=== PATIENT | male | born 1960 | race Caucasian/White ===

== ENCOUNTER 2018-08-05 09:04 | Inpatient (IN) | payer OTHER ==
[2018-08-05 09:34] VITALS: BMI 19.5
--- NOTE | 2018-08-05 10:08 | HP ---
CIWA Score Nausea/Vomitin Muscle Tremors: 2 Anxiety: 2 Agitation: 2 Paroxysmal Sweats: 1-Minimal Palms Moist Orientation: 0-Oriented Tacttile Disturbances: 1-Very Mild Itch/Numbness Auditory Disturbances: 1-Very Mild Visual Disturbances: 0-None Headache: 2-Mild CIWA-Ar Total Score: 13 - Admission Criteria OASAS Guidelines: Admission for Medically Managed Detox: Requires at least one of the followin. CIWA greater than 12 2. Seizures within the past 24 hours 3. Delirium tremens within the past 24 hours 4. Hallucinations within the past 24 hours 5. Acute intervention needed for co occurring medical disorder 6. Acute intervention needed for co occurring psychiatric disorder 7. Severe withdrawal that cannot be handled at a lower level of care (continued vomiting, continued diarrhea, abnormal vital signs) requiring intravenous medication and/or fluids 8. Admission ROS [facility] - HPI Chief Complaint: i need help to stop drinking alcohol Allergies/Adverse Reactions: Allergies Allergy/AdvReac Type Severity Reaction Status Date / Time No Known Allergies Allergy Verified 08/05/18 09:50 History of Present Illness: this 58 years old male with alcohol dependence,seeking detox,withdrawal symptom, seen in [place] last night receiving librium multiple admissions in detox,last 05/30 [facility] but keep relapsing seizure last 05/30 surgery left craniotomy post trauma in 2005 in [facility] nicotine 6 cigarette/day,requested patch longest sobriety 3 months weight loss plan for out patient after detox Exam Limitations: No Limitations - Ebola screening Have you traveled outside of the country in the last 21 days: No Have you had contact with anyone from an Ebola affected area: No Have you been sick,other than usual withdrawal symptoms: No Do you have a fever: No - Review of Systems Constitutional: Loss of Appetite, Malaise, Night Sweats, Changes in sleep, Unintentional Wgt. Loss EENT: reports: Tearing, Nose Congestion, Other (s/p left cranitomy post trauam in 2005) Respiratory: reports: No Symptoms reported Cardiac: reports: No Symptoms Reported GI: reports: Nausea, Poor Appetite, Vomiting : reports: No Symptoms Reported Musculoskeletal: reports: Back Pain, Muscle Pain Integumentary: reports: Dryness Neuro: reports: Headache, Tremors Endocrine: reports: No Symptoms Reported Hematology: reports: No Symptoms Reported Psychiatric: reports: No Sypmtoms Reported, Judgement Intact, Mood/Affect Appropiate, Orientated x3 Other Systems: Reviewed and Negative Patient History - Patient Medical History Hx Anemia: No Hx Asthma: No Hx Chronic Obstructive Pulmonary Disease (COPD): No Hx Cancer: No Hx Cardiac Disorders: No Hx Congestive Heart Failure: No Hx Hypertension: No Hx Hypercholesterolemia: No Hx Pacemaker: No HX Cerebrovascular Accident: No Hx Seizures: Yes (2 mths ago & on keppra) Hx Dementia: No Hx Diabetes: No Hx Gastrointestinal Disorders: No Hx Liver Disease: No Hx Genitourinary Disorders: No Hx Sexually Transmitted Disorders: No Hx Renal Disease (ESRD): No Hx Thyroid Disease: No Hx Human Immunodeficiency Virus (HIV): No (last 05/30 negative) Hx Hepatitis C: No Hx Depression: No Hx Suicide Attempt: No Hx Bipolar Disorder: No Hx Schizophrenia: No Other Medical History: no suicidal,no homicidal,left cranotomy post trauam in 2005 at [facility] - Patient Surgical History Past Surgical History: Yes Other Surgical History: brain surgery 2006 left cranitomy post trauma - PPD History Previous Implant?: Yes Documented Results: Negative w/o proof Implanted On Prior [facility] Admission?: No PPD to be Administered?: Yes - Smoking Cessation Smoking history: Current every day smoker Have you smoked in the past 12 months: Yes Aproximately how many cigarettes per day: 6 Hx Chewing Tobacco Use: No Initiated information on smoking cessation: Yes 'Breaking Loose' booklet given: 08/05/18 - Substance & Tx. History Hx Alcohol Use: Yes Hx Substance Use: No Substance Use Type: Alcohol Hx Substance Use Treatment: Yes (05/30 [facility]) - Substances Abused Alcohol Route: Oral Frequency: Daily Amount used: 2 pt. vodka Age of first use: 15 Date of Last Use: 08/05/18 Cocaine Route: Smoking Frequency: 1-3 times last 30 days Amount used: 5 $ Age of first use: 58 Date of Last Use: 08/01/18 Family Disease History - Family Disease History Family History: Denies Admission Physical Exam S - Vital Signs Vital Signs: Vital Signs - 24 hr 08/05/18 09:28 Temperature 99.1 F Pulse Rate 86 Respiratory 18 Rate Blood Pressure 149/93 - Physical General Appearance: Yes: Moderate Distress, Tremorous, Irritable, Anxious HEENTM: Yes: Normal ENT Inspection, NEW, Pharynx Normal, Other (s/p cranioty left post head trauma) Respiratory: Yes: Lungs Clear, Normal Breath Sounds, No Respiratory Distress Neck: Yes: Within Normal Limits, Supple, Trachea in good position Breast: Yes: Within Normal Limits Cardiology: Yes: Within Normal Limits, Regular Rhythm, Regular Rate, S1, S2 Abdominal: Yes: Within Normal Limits, Normal Bowel Sounds, Flat, Soft Genitourinary: Yes: Within Normal Limits Back: Yes: Muscle Spasm Musculoskeletal: Yes: Back pain, Muscle Pain Extremities: Yes: Within Normal Limits, Normal Range of Motion, Tremors Neurological: Yes: board of directors II-XII NML intact, Fully Oriented, Alert, Motor Strength 5/5, Other (s/p left cranioty left) Integumentary: Yes: Dry Lymphatic: Yes: Within Normal Limits - Diagnostic (1) Alcohol dependence with uncomplicated withdrawal Current Visit: Yes Status: Acute (2) Seizure Current Visit: Yes Status: Acute (3) Dehydration Current Visit: Yes Status: Acute (4) History of craniotomy Current Visit: Yes Status: Acute (5) Weight loss Current Visit: Yes Status: Acute Cleared for Admission [facility] - Detox or Rehab [facility] Level of Care: Medically Managed Detox Regimen/Protocol: Librium [facility] Breath Alcohol Content Breath Alcohol Content: 0.037 Urine Drug Screen - Results Drug Screen Negative: No Urine Drug Screen Results: [facility] Inpatient Rehab Admission - Rehab Decision to Admit Inpatient rehab admission?: No
[2018-08-05] MEDS ORDERED: MAGNESIUM CITRATE 300 ML BOTTLE PO PRN (10:28)
[2018-08-05] MEDS ORDERED: ACETAMINOPHEN 325 MG TABLET (FP) PO PRN ×2 (10:28)
[2018-08-05] MEDS ORDERED: MAGNESIUM HYDROX 2400MG/30ML ORAL SUSPENSION 30 ML CUP PO PRN (10:28)
[2018-08-05] MEDS ORDERED: chlordiazePOXIDE HCL 25 MG CAPSULE PO PRN (10:28)
[2018-08-05] MEDS ORDERED: MELATONIN 5 MG TABLETS PO PRN (10:28)
[2018-08-05] MEDS ORDERED: hydrOXYzine PAMOATE 25 MG CAPSULE (FP) PO PRN (10:28)
[2018-08-05] MEDS ORDERED: MAG HYDROX/AL HYDROX/SIMETH 30 ML UNIT-DOSE CUP PO PRN (10:28)
[2018-08-05] MEDS ORDERED: BISMUTH SUBSALICYLATE 262 MG/15 ML BTL PO PRN (10:28)
[2018-08-05] MEDS ORDERED: METHOCARBAMOL 500 MG TABLET PO PRN (10:28)
[2018-08-05] MEDS ORDERED: IBUPROFEN 400 MG TABLET (FP) PO PRN ×2 (10:28)
[2018-08-05] MEDS ORDERED: MENTHOL/PHENOL 1 EACH UD MM PRN (10:28)
--- NOTE | 2018-08-05 11:31 | EKG ---
Test Reason : Blood Pressure : / mmHG Vent. Rate : 085 BPM Atrial Rate : 085 BPM P-R Int : 126 ms QRS Dur : 082 ms QT Int : 376 ms P-R-T Axes : 067 062 059 degrees QTc Int : 447 ms NORMAL SINUS RHYTHM SEPTAL INFARCT , AGE UNDETERMINED ABNORMAL ECG NO PREVIOUS ECGS AVAILABLE Confirmed by PEARL FRAUSTO MD ([id number]) on 08/05/2018 11:31:29 AM Referred By: Confirmed By:PEARL FRAUSTO MD
[2018-08-05] MEDS: NICOTINE 21 MG/24 HOURS TOPICAL PATCH TD SCH (11:51)
[2018-08-05] MEDS: chlordiazePOXIDE HCL 25 MG CAPSULE PO SCH ×2 (19:24→22:54)
[2018-08-05 20:09] LABS: EPI CELLS 0.6 /HPF (0-5); URINE APPEARANCE CLEAR; URINE BACTERIA 1.2 /hpf (NEGATIVE); URINE BILIRUBIN NEGATIVE (NEGATIVE); URINE CASTS 1 /hpf (0-8); URINE COLOR YELLOW; URINE GLUCOSE (UA) NEGATIVE (NEGATIVE); URINE KETONE TRACE (NEGATIVE); URINE LEUK ESTERASE NEGATIVE (NEGATIVE); URINE NITRITE NEGATIVE (NEGATIVE); URINE PROTEIN NEGATIVE (NEGATIVE); URINE RBC 3 /hpf (0-4); URINE UROBILINOGEN 0.2 mg/dL (0.2-1.0); URINE WBC 1 /hpf (0-5)
[2018-08-05] MEDS: THIAMINE HCL 100 MG TABLET (FP) PO SCH (22:54)
[2018-08-05] MEDS: levETIRAcetam 500 MG TABLET (FP) PO SCH (22:54)
[2018-08-06] MEDS: chlordiazePOXIDE HCL 25 MG CAPSULE PO SCH ×4 (06:07→23:39)
[2018-08-06] MEDS: levETIRAcetam 500 MG TABLET (FP) PO SCH ×2 (10:23→23:39)
[2018-08-06] MEDS: PHENYTOIN NA EXTENDED 100 MG CAPSULE (FP) PO SCH (10:23)
[2018-08-06] MEDS: PRENATAL VITAMINS W/ FOLIC ACID TABLET (FP) PO SCH (10:23)
[2018-08-06] MEDS: NICOTINE 21 MG/24 HOURS TOPICAL PATCH TD SCH (10:24)
[2018-08-06 10:54] LABS: HEMATOCRIT 38.5 % (35.4-49); HEMOGLOBIN 12.8 GM/dL (11.7-16.9); MCH 34.7 pg (25.7-33.7); MCHC 33.2 g/dl (32.0-35.9); MEAN CELL VOLUME 104.4 fl (80-96); MEAN PLT VOLUME 8.7 fl (7.5-11.1); PLATELET COUNT 239 K/MM3 (134-434); RBC 3.69 M/mm3 (4.00-5.60); RDW 13.9 % (11.9-15.9); WHITE BLOOD COUNT 10.3 K/mm3 (4.0-10.0)
[2018-08-06 11:35] LABS: ALBUMIN 3.8 g/dl (3.4-5.0); ALK PHOS 111 U/L (45-117); ANION GAP 8 MMOL/L (8-16); BILIRUBIN,TOTAL 0.6 mg/dL (0.2-1); BLOOD UREA NITROGEN 5 mg/dL (7-18); CALCIUM 8.9 mg/dL (8.5-10.1); CHLORIDE 104 mmol/L (98-107); CO2 30 mmol/L (21-32); CREATININE 0.8 mg/dL (0.55-1.3); GLUCOSE,RANDOM 117 mg/dL (74-106); POTASSIUM 3.4 mmol/L (3.5-5.1); SGOT/AST 51 U/L (15-37); SGPT/ALT 27 U/L (13-61); SODIUM 142 mmol/L (136-145); TOT PROT 6.8 g/dl (6.4-8.2)
[2018-08-06] MEDS: THIAMINE HCL 100 MG TABLET (FP) PO SCH (23:39)
[2018-08-07] MEDS: chlordiazePOXIDE HCL 25 MG CAPSULE PO SCH ×2 (05:47→10:44)
[2018-08-07] MEDS: levETIRAcetam 500 MG TABLET (FP) PO SCH ×2 (10:44→23:01)
[2018-08-07] MEDS: PHENYTOIN NA EXTENDED 100 MG CAPSULE (FP) PO SCH (10:44)
[2018-08-07] MEDS: NICOTINE 21 MG/24 HOURS TOPICAL PATCH TD SCH (10:44)
[2018-08-07] MEDS: PRENATAL VITAMINS W/ FOLIC ACID TABLET (FP) PO SCH (10:44)
--- NOTE | 2018-08-07 11:06 | PN ---
S CIWA - CIWA Score Nausea/Vomitin-No Nausea/No Vomiting Muscle Tremors: 3 Anxiety: 3 Agitation: 3 Paroxysmal Sweats: 3 Orientation: 0-Oriented Tacttile Disturbances: 0-None Auditory Disturbances: 0-None Visual Disturbances: 0-None Headache: 0-None Present CIWA-Ar Total Score: 12 [facility] Progress Note (SOAP) Subjective: sweats interrupted sleep anxiety Objective: 08/07/18 11:04 Vital Signs Temperature 98.1 F 08/07/18 10:02 Pulse Rate 71 08/07/18 10:02 Respiratory Rate 16 08/07/18 10:02 Blood Pressure 142/78 08/07/18 10:02 O2 Sat by Pulse Oximetry (%) Laboratory Tests 08/05/18 08/05/18 08/05/18 11:15 11:15 12:15 WBC RBC Hgb Hct MCV MCH MCHC RDW Plt Count MPV Sodium Potassium Chloride Carbon Dioxide Anion Gap BUN Creatinine Creat Clearance w eGFR Random Glucose Calcium Total Bilirubin AST ALT Alkaline Phosphatase Total Protein Albumin Urine Color Yellow Urine Appearance Clear Urine pH 6.0 Ur Specific [place] 1.033 Urine Protein Negative Urine Glucose (UA) Negative Urine Ketones Trace H Urine Blood Trace Urine Nitrite Negative Urine Bilirubin Negative Urine Urobilinogen 0.2 Ur Leukocyte Esterase Negative Urine WBC (Auto) 1 Urine RBC (Auto) 3 Urine Casts (Auto) 1 U Epithel Cells (Auto) 0.6 Urine Bacteria (Auto) 1.2 Phenytoin 5.6 L RPR Titer HIV 1&2 Antibody Screen Negative HIV P24 Antigen Negative 08/06/18 08/06/18 08/06/18 06:00 06:00 08:00 WBC 10.3 H RBC 3.69 L Hgb 12.8 Hct 38.5 MCV 104.4 H MCH 34.7 H MCHC 33.2 RDW 13.9 Plt Count 239 MPV 8.7 Sodium 142 Potassium 3.4 L Chloride 104 Carbon Dioxide 30 Anion Gap 8 BUN 5 L Creatinine 0.8 Creat Clearance w eGFR 100.00 Random Glucose 117 H Calcium 8.9 Total Bilirubin 0.6 AST 51 H ALT 27 Alkaline Phosphatase 111 Total Protein 6.8 Albumin 3.8 Urine Color Urine Appearance Urine pH Ur Specific [place] Urine Protein Urine Glucose (UA) Urine Ketones Urine Blood Urine Nitrite Urine Bilirubin Urine Urobilinogen Ur Leukocyte Esterase Urine WBC (Auto) Urine RBC (Auto) Urine Casts (Auto) U Epithel Cells (Auto) Urine Bacteria (Auto) Phenytoin RPR Titer Nonreactive HIV 1&2 Antibody Screen HIV P24 Antigen labs noted hypokalemia 3.4; kdur 20meq x 2 days ordered labs repeated orderd aaox3 ambulating no acute distress Assessment: 08/07/18 11:05 withdrawal sx Plan: continue detox increase fluids kdur ordered labs repeated
[2018-08-07] MEDS: POTASSIUM CHLORIDE TABS 20 MEQ TABLET.ER (FP) PO SCH (12:31)
[2018-08-07] MEDS ORDERED: chlordiazePOXIDE HCL 10 MG CAPSULE PO PRN (17:00)
[2018-08-07] MEDS: chlordiazePOXIDE HCL 10 MG CAPSULE PO SCH ×2 (17:35→23:02)
[2018-08-07] MEDS: THIAMINE HCL 100 MG TABLET (FP) PO SCH (23:02)
[2018-08-08] MEDS: chlordiazePOXIDE HCL 10 MG CAPSULE PO SCH ×3 (06:18→17:38)
[2018-08-08] MEDS: POTASSIUM CHLORIDE TABS 20 MEQ TABLET.ER (FP) PO SCH (10:14)
[2018-08-08] MEDS: PRENATAL VITAMINS W/ FOLIC ACID TABLET (FP) PO SCH (10:14)
[2018-08-08] MEDS: PHENYTOIN NA EXTENDED 100 MG CAPSULE (FP) PO SCH (10:14)
[2018-08-08] MEDS: levETIRAcetam 500 MG TABLET (FP) PO SCH ×2 (10:14→22:32)
[2018-08-08] MEDS: NICOTINE 21 MG/24 HOURS TOPICAL PATCH TD SCH (10:14)
[2018-08-08 11:00] LABS: BASO % 0.4 % (0-2.0); EOS % 5.6 % (0-4.5); HEMATOCRIT 36.1 % (35.4-49); LYMPH % 35.4 % (8-40); MCHC 33.1 g/dl (32.0-35.9); MEAN CELL VOLUME 102.7 fl (80-96); MEAN PLT VOLUME 8.9 fl (7.5-11.1); MONO % 13.2 % (3.8-10.2); NEUT % 45.4 % (42.8-82.8); PLATELET COUNT 194 K/MM3 (134-434); RBC 3.52 M/mm3 (4.00-5.60); RDW 13.2 % (11.9-15.9); WHITE BLOOD COUNT 5.4 K/mm3 (4.0-10.0)
[2018-08-08 11:03] LABS: ALBUMIN 2.8 g/dl (3.4-5.0); ALK PHOS 107 U/L (45-117); ANION GAP 7 MMOL/L (8-16); BILIRUBIN,TOTAL 0.2 mg/dL (0.2-1); BLOOD UREA NITROGEN 10 mg/dL (7-18); CALCIUM 8.2 mg/dL (8.5-10.1); CHLORIDE 104 mmol/L (98-107); CO2 27 mmol/L (21-32); CREATININE 0.6 mg/dL (0.55-1.3); GLUCOSE,RANDOM 98 mg/dL (74-106); POTASSIUM 3.6 mmol/L (3.5-5.1); SGOT/AST 16 U/L (15-37); SGPT/ALT 15 U/L (13-61); SODIUM 138 mmol/L (136-145); TOT PROT 5.6 g/dl (6.4-8.2)
--- NOTE | 2018-08-08 13:43 | PN ---
S CIWA - CIWA Score Nausea/Vomitin Muscle Tremors: 2 Anxiety: 2 Agitation: 2 Paroxysmal Sweats: 2 Orientation: 0-Oriented Tacttile Disturbances: 2-Mild Itch/Numbness/Burn Auditory Disturbances: 0-None Visual Disturbances: 0-None Headache: 1-Very Mild CIWA-Ar Total Score: 13 S Progress Note (SOAP) Subjective: Interrupted sleep, shakes, sweats and malaise Objective: 08/08/18 13:42 Vital Signs 08/08/18 08/08/18 08:29 09:43 Temperature 97.5 F L 97.7 F Pulse Rate 61 86 Respiratory 18 16 Rate Blood Pressure 136/79 131/70 Laboratory Last Values WBC 5.4 K/mm3 (4.0-10.0) 08/08/18 07:45 RBC 3.52 M/mm3 (4.00-5.60) L 08/08/18 07:45 Hgb 12.0 GM/dL (11.7-16.9) 08/08/18 07:45 Hct 36.1 % (35.4-49) 08/08/18 07:45 MCV 102.7 fl (80-96) H 08/08/18 07:45 MCH 34.0 pg (25.7-33.7) H 08/08/18 07:45 MCHC 33.1 g/dl (32.0-35.9) 08/08/18 07:45 RDW 13.2 % (11.9-15.9) 08/08/18 07:45 Plt Count 194 K/MM3 (134-434) 08/08/18 07:45 MPV 8.9 fl (7.5-11.1) 08/08/18 07:45 Absolute Neuts (auto) 2.5 K/mm3 (1.5-8.0) 08/08/18 07:45 Neutrophils % 45.4 % (42.8-82.8) 08/08/18 07:45 Lymphocytes % 35.4 % (8-40) 08/08/18 07:45 Monocytes % 13.2 % (3.8-10.2) H 08/08/18 07:45 Eosinophils % 5.6 % (0-4.5) H 08/08/18 07:45 Basophils % 0.4 % (0-2.0) 08/08/18 07:45 Nucleated RBC % 0 % (0-0) 08/08/18 07:45 Sodium 138 mmol/L (136-145) 08/08/18 07:45 Potassium 3.6 mmol/L (3.5-5.1) 08/08/18 07:45 Chloride 104 mmol/L (98-107) 08/08/18 07:45 Carbon Dioxide 27 mmol/L (21-32) 08/08/18 07:45 Anion Gap 7 MMOL/L (8-16) L 08/08/18 07:45 BUN 10 mg/dL (7-18) 08/08/18 07:45 Creatinine 0.6 mg/dL (0.55-1.3) 08/08/18 07:45 Creat Clearance w eGFR 139.37 (>60) 08/08/18 07:45 Random Glucose 98 mg/dL (74-106) 08/08/18 07:45 Calcium 8.2 mg/dL (8.5-10.1) L 08/08/18 07:45 Total Bilirubin 0.2 mg/dL (0.2-1) 08/08/18 07:45 AST 16 U/L (15-37) 08/08/18 07:45 ALT 15 U/L (13-61) 08/08/18 07:45 Alkaline Phosphatase 107 U/L (45-117) 08/08/18 07:45 Total Protein 5.6 g/dl (6.4-8.2) L 08/08/18 07:45 Albumin 2.8 g/dl (3.4-5.0) L 08/08/18 07:45 Urine Color Yellow 08/05/18 12:15 Urine Appearance Clear 08/05/18 12:15 Urine pH 6.0 (5.0-8.0) 08/05/18 12:15 Ur Specific [place] 1.033 (1.010-1.035) 08/05/18 12:15 Urine Protein Negative (NEGATIVE) 08/05/18 12:15 Urine Glucose (UA) Negative (NEGATIVE) 08/05/18 12:15 Urine Ketones Trace (NEGATIVE) H 08/05/18 12:15 Urine Blood Trace (NEGATIVE) 08/05/18 12:15 Urine Nitrite Negative (NEGATIVE) 08/05/18 12:15 Urine Bilirubin Negative (NEGATIVE) 08/05/18 12:15 Urine Urobilinogen 0.2 mg/dL (0.2-1.0) 08/05/18 12:15 Ur Leukocyte Esterase Negative (NEGATIVE) 08/05/18 12:15 Urine WBC (Auto) 1 /hpf (0-5) 08/05/18 12:15 Urine RBC (Auto) 3 /hpf (0-4) 08/05/18 12:15 Urine Casts (Auto) 1 /hpf (0-8) 08/05/18 12:15 U Epithel Cells (Auto) 0.6 /HPF (0-5) 08/05/18 12:15 Urine Bacteria (Auto) 1.2 /hpf (NEGATIVE) 08/05/18 12:15 Phenytoin 5.6 ug/ml (10.0-20.0) L 08/05/18 11:15 RPR Titer Nonreactive (NONREACTIVE) 08/06/18 08:00 HIV 1&2 Antibody Screen Negative 08/05/18 11:15 HIV P24 Antigen Negative 08/05/18 11:15 Labs noted- no panic values Assessment: 08/08/18 13:43 Withdrawal sx Plan: Continue detox
[2018-08-08] MEDS: THIAMINE HCL 100 MG TABLET (FP) PO SCH (22:32)
[2018-08-09] MEDS: chlordiazePOXIDE HCL 10 MG CAPSULE PO SCH (06:04)
--- NOTE | 2018-08-09 09:29 | DS ---
[facility] Detox Discharge Summary Admission Date: 08/05/18 Discharge Date: 08/09/18 - History Present History: Alcohol Dependence - Physical Exam Results Vital Signs: Vital Signs Temperature 97.5 F L 08/09/18 07:58 Pulse Rate 61 08/09/18 07:58 Respiratory Rate 18 08/09/18 07:58 Blood Pressure 144/76 08/09/18 07:58 O2 Sat by Pulse Oximetry (%) - Treatment Hospital Course: Detox Protocol Followed, Detoxed Safely, Responded well, Discharged Condition Good, Rehab Referral Accepted - Medication Discharge Medications: Ambulatory Orders Phenytoin Na Extended [Dilantin -] 300 mg PO DAILY 08/05/18 levETIRAcetam [Keppra -] 500 mg PO BID 08/05/18 - Diagnosis (1) Alcohol dependence with uncomplicated withdrawal Current Visit: Yes Status: Chronic (2) Dehydration Current Visit: Yes Status: Acute (3) History of craniotomy Current Visit: Yes Status: Acute (4) Seizure Current Visit: Yes Status: Acute (5) Weight loss Current Visit: Yes Status: Acute - AMA Did Patient Leave Against Medical Advice: No (referred to [facility])
[2018-08-09] MEDS: levETIRAcetam 500 MG TABLET (FP) PO SCH (09:41)
[2018-08-09] MEDS: POTASSIUM CHLORIDE TABS 20 MEQ TABLET.ER (FP) PO SCH (09:41)
[2018-08-09] MEDS: PRENATAL VITAMINS W/ FOLIC ACID TABLET (FP) PO SCH (09:41)
[2018-08-09] MEDS: PHENYTOIN NA EXTENDED 100 MG CAPSULE (FP) PO SCH (09:41)
[2018-08-09 10:00] VITALS: BP 146/89; PULSE 68; TEMP 97.9
== END 2018-08-09 09:56 | disposition home or self-care (01) | DRG 774 ==
LOC: YASAS 09:04 → Y6N 10:30
PROVIDERS: ADMIT Surgery; ATTEND Surgery
PROC: HZ2ZZZZ Detoxification Services for Substance Abuse Treatment (ICD-10-PCS; principal; 2018-08-05)
DX: F10.230 Alcohol dependence with withdrawal, uncomplicated (principal); F17.213 Nicotine dependence, cigarettes, with withdrawal; F14.10 Cocaine abuse, uncomplicated; E86.0 Dehydration; E87.6 Hypokalemia; G40.909 Epilepsy, unspecified, not intractable, without status epilepticus; R63.4 Abnormal weight loss; Z68.1 Body mass index [BMI] 19.9 or less, adult; Z87.820 Personal history of traumatic brain injury
CPT/HCPCS: 36415; 80053; 80177; 80185; 81003; 85025; 85027; 86593; 87389; 93005; 93010